=== PATIENT | male | born 1960 | race African-American/Black ===

== ENCOUNTER 2017-07-17 19:40 | Inpatient (IN) | payer OTHER, SELFPAY ==
[~2017-07-17 19:40] MED LIST: Glycopyrrolate 0.2 MG/ML 5 ML SYRINGE ONE; Lidocaine 1% PF 5 ML VIAL ONE; PHENYLEPHRINE-NS 100 MCG/ML 10 ML SYRINGE ONE; PROPOFOL 200 MG/20 ML VIAL ONE; Succinylcholine Chloride 20 MG/ML 10 ml SYRINGE FS ONE; ePHEDrine/0.9% NaCl/PF SYRINGE 50 mg/10 ml ONE
[2017-07-17] MEDS ORDERED: Ondansetron ODT 4 MG TAB ONE (19:50)
[2017-07-17] MEDS ORDERED: Morphine 4 MG/ML VIAL ONE (19:50)
[2017-07-17 20:24] LABS: #Lymphocytes 1.2 thou/uL (1.20-3.40); #Monocytes 0.4 thou/uL (0.11-0.59); #Neutrophils 6.8 thou/uL (1.40-6.50); %Basophils 0.3 % (0.0-1.0); %Eosinophils 0.2 % (0.0-10.0); %Lymphocytes 14.3 % (21.0-51.0); %Monocytes 4.8 % (0.0-10.0); %Neutrophils 80.4 % (42.0-75.0); Hemoglobin 13.3 g/dL (14.0-18.0); Mean Corpuscular HGB CONC 34.3 g/dL (32.0-36.0); Mean Corpuscular Hemoglobin 35.5 pg (27.0-31.0); Mean Platelet Volume 5.5 fL (7.4-10.4); Platelet Count 293 thou/uL (130-400); RBC Distribution Width 10.3 % (11.5-14.5); Red Blood Cell (RBC) Count 3.75 mill/uL (4.70-6.10); White Blood Cell (WBC) Count 8.4 thou/uL (4.8-10.8)
[2017-07-17 20:30] LABS: PTT 24.9 SEC (22.9-36.1); Prothrombin Time 13.5 SEC (12.0-14.7)
[2017-07-17 20:44] LABS: ALT (SGPT) 15 U/L (8-55); AST (SGOT) 29 U/L (5-34); Albumin 4.3 g/dL (3.5-5.0); Alkaline Phosphatase 58 U/L (40-150); Anion Gap 16 mmol/L (10-20); BUN (Urea Nitrogen) 8 mg/dL (8.4-25.7); Bilirubin, Total 1.5 mg/dL (0.2-1.2); Calc. Creatinine Clearance 0 mL/min (70-130); Calcium 8.9 mg/dL (7.8-10.44); Carbon Dioxide 22 mmol/L (22-29); Chloride 96 mmol/L (98-107); Estimated GFR-MDRD Greater than 90; Globulin 2.9 g/dL (2.4-3.5); Glucose 80 mg/dL (70-105); Protein, Total 7.2 g/dL (6.0-8.3); Sodium 130 mmol/L (136-145)
[2017-07-17 20:48] LABS: CKMB 2.9 ng/mL (0-6.6); Troponin I Less than 0.010 ng/mL (< 0.028)
[2017-07-17] MEDS ORDERED: Bupivacaine/Epinephrine 0.25% 30 ML VIAL ONE (21:28)
[2017-07-17] MEDS ORDERED: HYDROmorphone 0.5 MG/0.5 ML SYRINGE ONE (21:32)
[2017-07-17] MEDS ORDERED: Fentanyl 100 MCG/2 ML VIAL ONE (21:32)
--- NOTE | 2017-07-17 21:56 | ULT ---
SCROTAL ULTRASOUND: Date: 07/17/17 INDICATION: History of large right inguinal hernia that is painful and difficult to reduce. TECHNIQUE: Delacruz scale, color Doppler, and vascular duplex with spectral analysis performed. FINDINGS: The right testicle measures 3.8 x 1.5 x 2.6 cm. There is a small dystrophic calcification within the superior aspect of the right testicle. Within the right hemiscrotum, posterior to the testicle, is a large hernia containing loops of suspected small bowel. There is a small right hydrocele. There is no rmal flow to the right testicle. The epididymis appears within normal limits. The left testicle and left epididymis not seen. IMPRESSION: 1. Large right bowel containing inguinal hernia extending into the right hemiscrotum. 2. No intratesticular mass or torsion involving the right testicle. There is a small dystrophic calc ification seen involving the superior pole of the right testicle with associated mass. A follow-up ex amination in 1 year is recommended to document stability. 3. Nonvisualization of left testicle and left epididymis. POS: SHYANNE
[2017-07-17] MEDS ORDERED: Promethazine HCl 25 MG/ML VIAL ONE (23:35)
[2017-07-17] MEDS ORDERED: Ondansetron HCl/PF 4 MG/2 ML Vial ONE (23:35)
[2017-07-17] MEDS ORDERED: Ondansetron HCl/PF 4 MG/2 ML Vial IVP PRN ×2 (23:36→23:49)
[2017-07-17] MEDS ORDERED: Morphine 4 MG/ML VIAL SLOW IVP PRN ×2 (23:36)
[2017-07-17] MEDS ORDERED: Promethazine HCl 25 MG/ML VIAL IM PRN ×2 (23:36→23:49)
[2017-07-17] MEDS ORDERED: hydrALAZINE 20 MG/ML VIAL SLOW IVP PRN (23:36)
[2017-07-17] MEDS ORDERED: CEFAZOLIN/Water 2 GM/20 ML SYRINGE SLOW IVP SCH (23:45)
[2017-07-17] MEDS ORDERED: HYDROmorphone 2 MG/ML VIAL SLOW IVP PRN (23:49)
[2017-07-17] MEDS ORDERED: Promethazine HCl 25 MG/ML VIAL SLOW IVP PRN (23:49)
[2017-07-18 00:13] LABS: Lactic Acid 3.2 mmol/L (0.5-2.2)
[2017-07-18 00:44] VITALS: BMI 18.2
--- NOTE | 2017-07-18 01:03 | HP ---
DATE OF ADMISSION: 07/17/2017 CHIEF COMPLAINT: Left scrotal mass with pain. HISTORY OF PRESENT ILLNESS: The patient is a cachectic appearing 56-year-old black male. He is a fa irly poor historian. He notes that he has had a mass in his left scrotum for some period of time, es timated at 5 years. He has no insurance and no doctor and has never sought care for this. He notes that it started hurting earlier today. He vomited when it started hurting. He last ate yesterday. PAST MEDICAL HISTORY: He denies any prior medical problems. PAST SURGICAL HISTORY: None. MEDICATIONS: None. ALLERGIES: No known drug allergies. PRIMARY CARE PHYSICIAN: None. PERSONAL AND SOCIAL HISTORY: Single with no children. He lives by himself. He smokes about a pack per day of cigarettes. He drinks about a 12-pack of beer per day. He smokes crack cocaine whenever he can get it, but this is not every day. 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 He lives in [place]. REVIEW OF SYSTEMS: Otherwise, unremarkable. FAMILY HISTORY: Noncontributory. PHYSICAL EXAMINATION: VITAL SIGNS: He is afebrile. Vital signs within normal limits. GENERAL: He is a cachectic appearing black male resting in bed. It is difficult to tell if he is un comfortable or if he is tired as he was rolled over on its side and does not open his eyes during con versation. He answers all questions appropriately, however. HEAD, EYES, EARS, NOSE AND THROAT: Unremarkable. NECK: Supple. LUNGS: Clear to auscultation. CARDIAC: Regular rate and rhythm. ABDOMEN: Soft, nontender. Bowel sounds appear to be normoactive. : He has an enormous left inguinoscrotal hernia. This is tender and nonreducible. An ultrasound was ordered and done at this revealing numerous loops of bowel present within the hemiscrotum. Only one testicle was seen within the scrotum, it is difficult to tell where his testicles are given the e normous size of the hernia. EXTREMITIES: Unremarkable. LABORATORY DATA: CBC reveals normal white blood cell count, hemoglobin is 13.3, platelets 293. Coag ulation panel is normal. Basic metabolic panel reveals slightly low sodium and chloride levels. Kid whit function is normal. His lactate level is slightly high at 2.9. Liver functions are normal excep t for slightly elevated bilirubin of 1.5. ASSESSMENT: The patient with an incarcerated painful left inguinal hernia, possibly strangulated. PLAN: Operative repair. Use of mesh will depend upon operative findings. Bowel resection as possib le. I explained all this to the patient who understands and is enthusiastic to proceed.
[2017-07-18] MEDS: Ketorolac Tromethamine 30 MG/ML VIAL IVP SCH ×5 (01:09→23:46)
[2017-07-18] MEDS: Acetaminophen 1,000 MG in Premix Bag 1 BAG IVPB SCH ×4 (01:10→17:43)
[2017-07-18] MEDS: Sodium Chloride 0.9% 1,000 ML IV SCH ×3 (01:11→17:43)
[2017-07-18] MEDS: CEFAZOLIN 1 GM in Sodium Chloride 0.9% 100 ML IVPB SCH ×4 (01:52→23:46)
[2017-07-18 04:23] LABS: #Basophils 0.1 thou/uL (0.0-0.2); #Lymphocytes 1.8 thou/uL (1.20-3.40); #Monocytes 0.5 thou/uL (0.11-0.59); #Neutrophils 8.1 thou/uL (1.40-6.50); %Basophils 0.7 % (0.0-1.0); %Eosinophils 0.1 % (0.0-10.0); %Lymphocytes 17.3 % (21.0-51.0); %Monocytes 4.5 % (0.0-10.0); %Neutrophils 77.4 % (42.0-75.0); Hemoglobin 12.3 g/dL (14.0-18.0); Mean Corpuscular HGB CONC 34.9 g/dL (32.0-36.0); Mean Corpuscular Hemoglobin 35.6 pg (27.0-31.0); Mean Platelet Volume 5.8 fL (7.4-10.4); Platelet Count 284 thou/uL (130-400); RBC Distribution Width 10.1 % (11.5-14.5); Red Blood Cell (RBC) Count 3.46 mill/uL (4.70-6.10); White Blood Cell (WBC) Count 10.4 thou/uL (4.8-10.8)
[2017-07-18 04:42] LABS: Anion Gap 14 mmol/L (10-20); BUN (Urea Nitrogen) 10 mg/dL (8.4-25.7); Calc. Creatinine Clearance 87 mL/min (70-130); Calcium 8.7 mg/dL (7.8-10.44); Carbon Dioxide 24 mmol/L (22-29); Chloride 97 mmol/L (98-107); Estimated GFR-MDRD Greater than 90; Glucose 62 mg/dL (70-105); Potassium 4.6 mmol/L (3.5-5.1); Sodium 130 mmol/L (136-145)
[2017-07-18] MEDS: Famotidine 20 MG TAB PO SCH ×2 (08:24→22:18)
[2017-07-18] MEDS: Enoxaparin Sodium 40 MG/0.4 ML SYRINGE SC SCH (11:10)
[2017-07-18] MEDS: Famotidine/PF 20 mg/2ml Vial SLOW IVP SCH ×2 (11:11→22:18)
--- NOTE | 2017-07-18 16:57 | PRG ---
DATE OF SERVICE: 07/18/2017 SUBJECTIVE: Mr. Sierra is postoperative day #1 following repair of an incarcerated left inguinal corina ia. The mesentery was very hyperemic and congested, but the bowel appeared to be viable and I theref rosa maria did not perform a resection. He tells me today that he feels much better. He still has some sor eness, but the debilitating pain that he had is, of course, resolved. OBJECTIVE: VITAL SIGNS: He is afebrile with a maximum temperature of 99.1, pulse is 85, blood pressure 131/81 LUNGS: Clear to auscultation. ABDOMEN: Soft with hypoactive bowel sounds. His left inguinal incision appears to be nicely healed. His scrotum appears to be within normal limits with testicles descended bilaterally. There is no f ocal testicular tenderness. LABORATORY STUDIES: His chemistry still show that he has got a low level of sodium chloride. Renal function is preserved. His white blood cell count is 10.4 with a hemoglobin of 12.3. In summary, he is doing well following his surgery. He is voiding well and I will start him on clear liquids today. He is encouraged to ambulate. If he continues to progress appropriately, I would ho pe to discharge him tomorrow.
[2017-07-18] MEDS ORDERED: Acetaminophen 325 MG TAB PO PRN (23:39)
[2017-07-19] MEDS: Ketorolac Tromethamine 30 MG/ML VIAL IVP SCH ×3 (06:27→18:09)
[2017-07-19] MEDS: Sodium Chloride 0.9% 1,000 ML IV SCH ×2 (07:49→08:12)
[2017-07-19] MEDS: CEFAZOLIN 1 GM in Sodium Chloride 0.9% 100 ML IVPB SCH (08:11)
[2017-07-19] MEDS: Famotidine 20 MG TAB PO SCH ×2 (08:13→19:57)
[2017-07-19] MEDS: Famotidine/PF 20 mg/2ml Vial SLOW IVP SCH ×2 (08:15→20:14)
[2017-07-19] MEDS: Enoxaparin Sodium 40 MG/0.4 ML SYRINGE SC SCH (09:20)
[2017-07-19] MEDS: HYDROcodone/Acetaminophen 7.5/325 mg Tablet PO PRN (09:23)
--- NOTE | 2017-07-19 17:36 | PRG ---
DATE OF SERVICE: 07/19/2017 SUBJECTIVE: Mr. Sierra is postoperative day number 2 from repair of an incarcerated left inguinal her zahra. He has no complaints today. He has passed gas and had a bowel movement. He is urinating uneve ntfully. He notes his pain is significantly improved. OBJECTIVE: VITAL SIGNS: His temperature last night was as high as 99.7. Today, it is 99.0. Pulse is 65, blood pressure 149/99. LUNGS: Clear to auscultation. ABDOMEN: Soft. Bowel sounds are present and normoactive. His left inguinal incision is healing indu stephan. He has appropriate edema in his left hemiscrotum. LABORATORY STUDIES: None. ASSESSMENT: The patient appears to be healing appropriately following repair of his incarcerated her zahra. Ileus seems to be resolving appropriately. I will advance him up to a regular diet and discont inue his IV fluids. Assuming he is doing well tomorrow, I would plan on discharging him home then.
[2017-07-20] MEDS: Ketorolac Tromethamine 30 MG/ML VIAL IVP SCH ×3 (00:15→11:19)
[2017-07-20 06:05] LABS: Anion Gap 9 mmol/L (10-20); BUN (Urea Nitrogen) 6 mg/dL (8.4-25.7); Calc. Creatinine Clearance 104 mL/min (70-130); Calcium 8.7 mg/dL (7.8-10.44); Carbon Dioxide 24 mmol/L (22-29); Chloride 101 mmol/L (98-107); Estimated GFR-MDRD Greater than 90; Glucose 121 mg/dL (70-105); Potassium 3.4 mmol/L (3.5-5.1); Sodium 131 mmol/L (136-145)
[2017-07-20 06:07] LABS: #Eosinphils 0.1 thou/uL (0.0-0.7); #Lymphocytes 1.4 thou/uL (1.20-3.40); #Monocytes 0.6 thou/uL (0.11-0.59); #Neutrophils 3.7 thou/uL (1.40-6.50); %Basophils 0.7 % (0.0-1.0); %Eosinophils 1.7 % (0.0-10.0); %Lymphocytes 24.2 % (21.0-51.0); %Monocytes 10.6 % (0.0-10.0); %Neutrophils 62.8 % (42.0-75.0); Hemoglobin 10.9 g/dL (14.0-18.0); Mean Corpuscular HGB CONC 34.1 g/dL (32.0-36.0); Mean Corpuscular Hemoglobin 35.4 pg (27.0-31.0); Mean Platelet Volume 5.9 fL (7.4-10.4); Platelet Count 241 thou/uL (130-400); RBC Distribution Width 10.2 % (11.5-14.5); Red Blood Cell (RBC) Count 3.08 mill/uL (4.70-6.10); White Blood Cell (WBC) Count 5.8 thou/uL (4.8-10.8)
[2017-07-20] MEDS: Famotidine/PF 20 mg/2ml Vial SLOW IVP SCH (09:11)
[2017-07-20] MEDS: Enoxaparin Sodium 40 MG/0.4 ML SYRINGE SC SCH (09:11)
[2017-07-20] MEDS: Famotidine 20 MG TAB PO SCH (09:11)
[2017-07-20] MEDS: HYDROcodone/Acetaminophen 7.5/325 mg Tablet PO PRN (10:44)
[2017-07-20 13:32] VITALS: BP 148/85; TEMP 98.4
--- NOTE | 2017-07-20 14:59 | PRG ---
DATE OF SERVICE: 07/20/2017 ADMISSION DIAGNOSIS: An incarcerated, concern for strangulated, left inguinal hernia. DISCHARGE DIAGNOSIS: Incarcerated left inguinal hernia. OPERATION AND PROCEDURES PERFORMED: Mesh repair of incarcerated left inguinal hernia. ADMISSION HISTORY: The patient is a 56-year-old cachectic-appearing black male. He has multiple [facility] habits including smoking, drinking, and use of crack cocaine. He presented to the hospital wi th a huge left inguinoscrotal hernia that was entirely incarcerated and very painful. The patient wa s taken urgently to the operating room on the night of his presentation. HOSPITAL COURSE: Uneventful left inguinal hernia repair was performed. This was an indirect hernia. Although the mesentery appeared congested and dark, the bowel itself was entirely viable and I ther efore did not resect any. The patient has had an uneventful recovery. He has been able to urinate a nd have a bowel movement. He is tolerating his diet and currently has minimal discomfort. He has be en hemodynamically stable the entire time. As of today, postoperative day 3, he is stable for discha rge. He will be discharged home with a prescription for tramadol and requested to follow up with mys kassif in my office in 10-14 days. I have discussed all discharge instructions with the patient.
--- NOTE | 2017-07-20 20:18 | EKG ---
Test Reason : CHEST PAIN Blood Pressure : / mmHG Vent. Rate : 074 BPM Atrial Rate : 074 BPM P-R Int : 116 ms QRS Dur : 086 ms QT Int : 352 ms P-R-T Axes : 084 068 067 degrees QTc Int : 390 ms Normal sinus rhythm Normal ECG When compared with ECG of 17-JUL-2017 19:53, (Unconfirmed) T wave amplitude has decreased in Inferior leads Confirmed by PEGGY DACOSTA ([id number]) on 07/20/2017 8:17:48 PM Referred By: ISHA Confirmed By:PEGGY DACOSTA
== END 2017-07-20 15:51 | disposition home or self-care (01) | DRG 351 ==
LOC: ERS 19:40 → SDC 21:23 → SURG A 23:36
PROVIDERS: ADMIT Specialist; ATTEND Specialist
PROC: 0YU60JZ Supplement Left Inguinal Region with Synthetic Substitute, Open Approach (ICD-10-PCS; principal; 2017-07-17)
DX: K40.30 Unilateral inguinal hernia, with obstruction, without gangrene, not specified as recurrent (principal); F14.20 Cocaine dependence, uncomplicated; R64 Cachexia; Z68.1 Body mass index [BMI] 19.9 or less, adult; F17.210 Nicotine dependence, cigarettes, uncomplicated; F10.20 Alcohol dependence, uncomplicated
CPT/HCPCS: 36415; 76870; 80048; 80053; 82553; 83605; 84484; 85025; 85610; 85730; 86850; 86900; 86901; 93005; 93010; 93976; 96374; C1781; J0131; J0690; J1170; J1650; J1885; J2001; J2270; J2405; J2550; J2704; J3010; J7050; Q0162; S0028

== ENCOUNTER 2017-10-28 04:15 | Emergency (ER) | payer SELFPAY | END 2017-10-28 04:50 | disposition home or self-care (01) | LOC: ERS 04:15 | DX: T16.1XXA Foreign body in right ear, initial encounter (principal); F17.210 Nicotine dependence, cigarettes, uncomplicated | CPT/HCPCS: 69200 ==

== ENCOUNTER 2020-04-22 23:35 | Emergency (ER) | payer BC, SELFPAY ==
[2020-04-23 00:52] LABS: #Lymphocytes 0.9 thou/uL (1.20-3.40); #Monocytes 0.4 thou/uL (0.11-0.59); #Neutrophils 3.8 thou/uL (1.40-6.50); %Basophils 0.9 % (0.0-1.0); %Eosinophils 0.4 % (0.0-10.0); %Lymphocytes 17.6 % (21.0-51.0); %Monocytes 6.8 % (0.0-10.0); %Neutrophils 74.2 % (42.0-75.0); Hemoglobin 12.7 g/dL (14.0-18.0); Mean Corpuscular HGB CONC 35.2 g/dL (32.0-36.0); Mean Corpuscular Hemoglobin 36.4 pg (27.0-31.0); Mean Platelet Volume 6.2 fL (7.4-10.4); Platelet Count 255 thou/uL (130-400); RBC Distribution Width 10.3 % (11.5-14.5); Red Blood Cell (RBC) Count 3.48 mill/uL (4.70-6.10); White Blood Cell (WBC) Count 5.1 thou/uL (4.8-10.8)
[2020-04-23 01:08] LABS: ALT (SGPT) 15 U/L (8-55); AST (SGOT) 37 U/L (5-34); Albumin 3.9 g/dL (3.5-5.0); Alkaline Phosphatase 75 U/L (40-110); Anion Gap 15 mmol/L (10-20); BUN (Urea Nitrogen) 5 mg/dL (8.4-25.7); Bilirubin, Total 0.6 mg/dL (0.2-1.2); Calc. Creatinine Clearance 0 mL/min (70-130); Calcium 8.7 mg/dL (7.8-10.44); Carbon Dioxide 25 mmol/L (22-29); Chloride 94 mmol/L (98-107); Globulin 3.7 g/dL (2.4-3.5); Glucose 72 mg/dL (70-105); Potassium 4.4 mmol/L (3.5-5.1); Protein, Total 7.6 g/dL (6.0-8.3); Sodium 130 mmol/L (136-145)
[2020-04-23] MEDS ORDERED: Albuterol Sulfate 2.5 mg/3 ml Neb ONE (03:07)
[2020-04-23] MEDS ORDERED: Albuterol Sulfate 2.5 mg/0.5 ml Neb ONE (03:07)
--- NOTE | 2020-04-23 08:42 | RAD ---
EXAM: CHEST ONE VIEW HISTORY: Dyspnea COMPARISON: 10/21/2008 FINDINGS: The cardiac silhouette and pulmonary vasculature are within normal limits. The lungs are hyper expand ed but clear. A nodular density overlies the lateral left midlung zone. This could potentially represent a nipple shadow although is more laterally located than typically expected. Follow-up chest x-ray with nipple markers in place is recommended. There is no consolidation or pleural fluid identified. The osseous structures are intact. No other interval change. IMPRESSION: Nodular density overlying the lateral left midlung zone. Follow-up chest x-ray with nipple markers in place is recommended.
--- NOTE | 2020-04-26 15:16 | EKG ---
Test Reason : Blood Pressure : / mmHG Vent. Rate : 085 BPM Atrial Rate : 085 BPM P-R Int : 104 ms QRS Dur : 090 ms QT Int : 362 ms P-R-T Axes : 092 013 087 degrees QTc Int : 430 ms Sinus rhythm with short KS Possible Left atrial enlargement Borderline ECG Confirmed by MARLYS GARCIA M.D. ([id number]), newspaper managing editor MARTINE BATISTA ([id number]) on 04/26/2020 3:16:15 PM Referred By: Confirmed By:MARLYS GARCIA M.D.
== END 2020-04-23 03:48 | disposition home or self-care (01) ==
LOC: ERS 23:35
DX: J44.1 Chronic obstructive pulmonary disease with (acute) exacerbation (principal); F17.210 Nicotine dependence, cigarettes, uncomplicated
CPT/HCPCS: 36415; 71045; 80053; 84484; 85025; 93005; 94644; J7611; J7620

== ENCOUNTER 2020-04-23 12:05 | Emergency (ER) | payer BC ==
[2020-04-23 13:12] LABS: #Lymphocytes 0.8 thou/uL (1.20-3.40); #Monocytes 0.4 thou/uL (0.11-0.59); #Neutrophils 3.9 thou/uL (1.40-6.50); %Basophils 0.3 % (0.0-1.0); %Eosinophils 0.1 % (0.0-10.0); %Lymphocytes 14.9 % (21.0-51.0); %Monocytes 7.1 % (0.0-10.0); %Neutrophils 77.7 % (42.0-75.0); Hemoglobin 12.6 g/dL (14.0-18.0); Mean Corpuscular HGB CONC 34.2 g/dL (32.0-36.0); Mean Corpuscular Hemoglobin 34.7 pg (27.0-31.0); Mean Platelet Volume 5.9 fL (7.4-10.4); Platelet Count 380 thou/uL (130-400); RBC Distribution Width 10.4 % (11.5-14.5); Red Blood Cell (RBC) Count 3.63 mill/uL (4.70-6.10); White Blood Cell (WBC) Count 5.1 thou/uL (4.8-10.8)
[2020-04-23 13:28] LABS: Acetaminophen Less than 6.0 mcg/mL (10.0-30.0); Alcohol Less than 10 mg/dL (Less than 10); Salicylate Less than 8.0 mg/dL (15.0-30.0)
[2020-04-23 13:29] LABS: ALT (SGPT) 16 U/L (8-55); AST (SGOT) 35 U/L (5-34); Albumin 4.3 g/dL (3.5-5.0); Alkaline Phosphatase 74 U/L (40-110); Anion Gap 13 mmol/L (10-20); BUN (Urea Nitrogen) 8 mg/dL (8.4-25.7); Bilirubin, Total 0.8 mg/dL (0.2-1.2); Calc. Creatinine Clearance 0 mL/min (70-130); Calcium 9.4 mg/dL (7.8-10.44); Carbon Dioxide 28 mmol/L (22-29); Chloride 93 mmol/L (98-107); Glucose 128 mg/dL (70-105); Potassium 4.2 mmol/L (3.5-5.1); Protein, Total 8.3 g/dL (6.0-8.3); Sodium 130 mmol/L (136-145)
[2020-04-23 15:58] LABS: Bilirubin Negative (Negative); Blood, Urine Negative (Negative); Clarity Clear (Clear); Glucose, Urine (Dipstick) Normal (Negative); Ketone, Urine Negative (Negative); Leukocyte Negative Leu/uL (Negative); Nitrite Negative (Negative); Protein, Urine (Dipstick) 20 mg/dL (Neg-Trace); Specific Gravity, Urine 1.019 (1.002-1.036); Urobilinogen Normal mg/dL (Less than 2)
[2020-04-23 16:12] LABS: Amphetamine Not Detected (NotDetected); Barbiturates Screen Not Detected (NotDetected); Benzodiazepine Screen Not Detected (NotDetected); Cocaine Metabolite Screen Detected (NotDetected); Medtox Control Line Valid? VALID (VALID); Medtox Reader # READER 1; Methadone Not Detected (NotDetected); Methamphetamine Not Detected (NotDetected); Opiate Screen Not Detected (NotDetected); Oxycodone Screen Not Detected (NotDetected); Phencyclidine (PCP) Not Detected (NotDetected); THC/Cannabinoid Screen Not Detected (NotDetected); Tricyclic Screen Not Detected (NotDetected)
[2020-04-24] MEDS ORDERED: hydrOXYzine Pamoate 25 mg Capsule ONE (08:57)
[2020-04-24] MEDS ORDERED: Acetaminophen 325 MG TAB ONE (08:57)
[2020-04-24] MEDS ORDERED: Albuterol 200 PUFF (6.7GM INHALER) ONE (16:50)
== END 2020-04-23 16:55 ==
LOC: ERS 12:05
DX: R45.851 Suicidal ideations (principal); J44.9 Chronic obstructive pulmonary disease, unspecified; F17.210 Nicotine dependence, cigarettes, uncomplicated; Z79.51 Long term (current) use of inhaled steroids
CPT/HCPCS: 36415; 71045; 80053; 80306; 80307; 81003; 84484; 85025; 93005; 94644; J7611; J7620; Q0177

== ENCOUNTER 2020-10-02 23:08 | Emergency (ER) | payer BC ==
[~2020-10-02 23:08] MED LIST changes: -Glycopyrrolate 0.2 MG/ML 5 ML SYRINGE ONE; +Iopamidol-370 76% 500 ML 1 ML ONE; -Lidocaine 1% PF 5 ML VIAL ONE; -PHENYLEPHRINE-NS 100 MCG/ML 10 ML SYRINGE ONE; -PROPOFOL 200 MG/20 ML VIAL ONE; -Succinylcholine Chloride 20 MG/ML 10 ml SYRINGE FS ONE; -ePHEDrine/0.9% NaCl/PF SYRINGE 50 mg/10 ml ONE
[2020-10-03 00:20] LABS: #Basophils 0.1 thou/uL (0.0-0.2); #Eosinphils 0.1 thou/uL (0.0-0.7); #Lymphocytes 1.5 thou/uL (1.20-3.40); #Monocytes 0.7 thou/uL (0.11-0.59); #Neutrophils 2.7 thou/uL (1.40-6.50); %Basophils 1.3 % (0.0-1.0); %Eosinophils 1.8 % (0.0-10.0); %Lymphocytes 29.3 % (21.0-51.0); %Monocytes 14.3 % (0.0-10.0); %Neutrophils 53.3 % (42.0-75.0); Hemoglobin 10.6 g/dL (14.0-18.0); Mean Corpuscular HGB CONC 34.2 g/dL (32.0-36.0); Mean Platelet Volume 5.9 fL (7.4-10.4); Platelet Count 329 thou/uL (130-400); RBC Distribution Width 10.3 % (11.5-14.5); Red Blood Cell (RBC) Count 2.94 mill/uL (4.70-6.10); White Blood Cell (WBC) Count 5.1 thou/uL (4.8-10.8)
[2020-10-03 00:34] LABS: ALT (SGPT) 37 U/L (8-55); AST (SGOT) 69 U/L (5-34); Albumin 3.6 g/dL (3.5-5.0); Alkaline Phosphatase 71 U/L (40-110); Anion Gap 13 mmol/L (10-20); BUN (Urea Nitrogen) Less than 4 mg/dL (8.4-25.7); Bilirubin, Total 0.4 mg/dL (0.2-1.2); Calc. Creatinine Clearance 0 mL/min (70-130); Calcium 8.3 mg/dL (7.8-10.44); Carbon Dioxide 28 mmol/L (22-29); Chloride 101 mmol/L (98-107); Globulin 3.2 g/dL (2.4-3.5); Glucose 88 mg/dL (70-105); Lipase 40 U/L (8-78); Potassium 3.6 mmol/L (3.5-5.1); Protein, Total 6.8 g/dL (6.0-8.3); Sodium 138 mmol/L (136-145)
[2020-10-03 00:58] LABS: CKMB 0.9 ng/mL (0-6.6)
[2020-10-03 01:44] LABS: Bilirubin Negative (Negative); Blood, Urine Negative (Negative); Clarity Clear (Clear); Glucose, Urine (Dipstick) Normal (Negative); Ketone, Urine Negative (Negative); Leukocyte Negative Leu/uL (Negative); Nitrite Negative (Negative); Protein, Urine (Dipstick) Negative (Neg-Trace); Urobilinogen Normal mg/dL (Less than 2)
[2020-10-03 01:54] LABS: Specific Gravity, Urine 1.054 (1.002-1.036)
[2020-10-03 06:03] LABS: Troponin I 0.015 ng/mL (< 0.028)
== END 2020-10-03 06:29 | disposition home or self-care (01) ==
LOC: ERS 23:08
DX: R10.32 Left lower quadrant pain (principal); J44.9 Chronic obstructive pulmonary disease, unspecified; I50.9 Heart failure, unspecified; F17.210 Nicotine dependence, cigarettes, uncomplicated
CPT/HCPCS: 36415; 71045; 74177; 80053; 81003; 82553; 83690; 84484; 85025; 93005; Q9967

== ENCOUNTER 2023-08-02 13:13 | Outpatient (CLI) | payer MEDICAID | END 2023-08-02 13:14 | disposition home or self-care (01) | LOC: BICRAD 13:13 | PROVIDERS: ATTEND Nurse Practitioner Family | DX: J44.9 Chronic obstructive pulmonary disease, unspecified (principal) | CPT/HCPCS: 71046 ==

== ENCOUNTER 2024-12-05 09:50 | Emergency (ER) | payer OTHER ==
[2024-12-05] MEDS ORDERED: EPINEPHrine 1 MG/10 ML Abboject SYRINGE ONE ×2 (09:52→11:49)
[2024-12-05] MEDS ORDERED: Calcium Chloride 1 GM/10 ML Abboject SYRINGE ONE (09:52)
[2024-12-05] MEDS ORDERED: Sodium Bicarb 50 MEQ/50 ML Abboject 8.4% SYRINGE ONE ×4 (09:52→10:43)
[2024-12-05 10:25] LABS: Hematocrit 41.0 % (42.0-52.0); Hemoglobin 13.3 g/dL (14.0-18.0); Mean Corpuscular Hemoglobin 34.4 pg (27.0-31.0); Mean Corpuscular Volume 105.9 fL (78.0-98.0); Platelet Count 120 10x3/uL (130-400); Red Blood Cell (RBC) Count 3.87 mill/uL (4.70-6.10); White Blood Cell (WBC) Count 8.44 10x3/uL (4.8-10.8)
[2024-12-05 10:30] LABS: INR-International Normal Ratio 1.5; Prothrombin Time 18.1 sec (12.0-14.7)
[2024-12-05 10:31] LABS: PTT 51.7 sec (22.9-36.1)
[2024-12-05] MEDS ORDERED: Norepinephrine 8 MG/0.9% NS 250 ML ONE (10:33)
[2024-12-05 10:51] LABS: AST (SGOT) 3267 U/L (11-34); Albumin 2.3 g/dL (3.1-4.5); Alkaline Phosphatase 58 U/L (40-110); Anion Gap 31 mmol/L (10-20); BUN (Urea Nitrogen) 27 mg/dL (8.4-25.7); Bilirubin, Total 2.4 mg/dL (0.3-1.2); Calc. Creatinine Clearance 0 mL/min (70-130); Calcium 14.9 mg/dL (7.8-10.44); Carbon Dioxide 19 mmol/L (23-31); Chloride 92 mmol/L (98-107); Globulin 2.7 g/dL (2.4-3.5); Glucose 32 mg/dL (80-115); Potassium 6.5 mmol/L (3.5-5.1); Sodium 135 mmol/L (136-145)
[2024-12-05 10:52] LABS: Burr Cells MODERATE= 6-15 cells HPF (0-1); Macrocytosis SLIGHT = 6-15 cells HPF (0-5); Nucleated RBC (Manual Ct) 3 % (0); Platelet Adequacy Comment Platelets Decreased; Polychromasia SLIGHT = 2-3 cells HPF (0-2); Smudge Cells 24.6 %
[2024-12-05 11:03] LABS: Actual Bicarbonate (HCO3v) 19.2 mEq/L (22-28); Analyzer IN Cardio ER; Base Excess -14.5 mEq/L (-2.0 to +3.0); Calcium, Ionized (venous) 1.17 mmol/L (1.16-1.32); Chloride (VBG) 96 mmol/L (98-106); Hematocrit-VBG 31 % (42.0-52.0); Hemoglobin (Hb) 10.6 g/dL (13.1-17.2); Potassium (VBG) 4.70 mmol/L (3.70-5.30); Sodium 134 mmol/L (133-146)
[2024-12-05] MEDS ORDERED: levETIRAcetam 500 MG (5 mL) VIAL ONE (11:16)
[2024-12-05] MEDS ORDERED: Vasopressin In 0.9 % NaCl 100 ML ONE (11:23)
[2024-12-05 11:40] LABS: ALT (SGPT) 1121 U/L (Less than 45); CK (CPK) 17682 U/L (30-200)
[2024-12-05 12:10] LABS: Lipase 32 U/L (8-78)
[2024-12-05 12:12] LABS: Acetaminophen Less than 10 mcg/mL (Less than 10); Salicylate Less than 8.0 mg/dL (Less than 8.0)
[2024-12-05] MEDS ORDERED: Iopamidol-370 76% 500 ML MDV (1 ML CHARGE) ONE (12:51)
== END 2024-12-05 14:04 | disposition expired ==
LOC: ERS 09:50
DX: I46.9 Cardiac arrest, cause unspecified (principal); I26.94 Multiple subsegmental thrombotic pulmonary emboli without acute cor pulmonale; G93.1 Anoxic brain damage, not elsewhere classified; K63.1 Perforation of intestine (nontraumatic); I50.9 Heart failure, unspecified; J44.9 Chronic obstructive pulmonary disease, unspecified
CPT/HCPCS: 31500; 36556; 70450; 71045; 71275; 72125; 74177; 80053; 80307; 82140; 82550; 82805; 83605; 83690; 83880; 84443; 84484; 85025; 85610; 85730; 87040; 87077; 92950; 93005; 94002; 95812; 96365; 96374; 96375; J0165; J1953; J2060; Q9967